=== PATIENT | female | born 1945 | race Caucasian/White ===

== ENCOUNTER 2019-12-18 15:22 | Emergency (ER) | payer MEDICARE ==
[2019-12-18] MEDS ORDERED: Ondansetron PF 4 MG/2 ML Vial ONE (15:56)
[2019-12-18] MEDS ORDERED: Metoclopramide HCl 10 MG/2 ML VIAL ONE (16:14)
[2019-12-18 16:15] LABS: #Basophils 0.1 thou/uL (0.0-0.2); #Eosinphils 0.2 thou/uL (0.0-0.7); #Monocytes 0.6 thou/uL (0.11-0.59); %Basophils 1.2 % (0.0-1.0); %Eosinophils 2.9 % (0.0-10.0); %Monocytes 7.4 % (0.0-10.0); %Neutrophils 63.4 % (42.0-75.0); ALT (SGPT) 26 U/L (8-55); AST (SGOT) 25 U/L (5-34); Albumin 4.1 g/dL (3.4-4.8); Alkaline Phosphatase 68 U/L (40-110); Anion Gap 15 mmol/L (10-20); BUN (Urea Nitrogen) 21 mg/dL (9.8-20.1); Bilirubin, Total 0.2 mg/dL (0.2-1.2); Calc. Creatinine Clearance 0 mL/min (70-130); Calcium 9.4 mg/dL (7.8-10.44); Carbon Dioxide 22 mmol/L (23-31); Chloride 107 mmol/L (98-107); Estimated GFR-MDRD 53; Globulin 2.9 g/dL (2.4-3.5); Glucose 130 mg/dL (83-110); Hemoglobin 13.2 g/dL (12.0-16.0); Lipase 63 U/L (8-78); Mean Corpuscular HGB CONC 31.5 g/dL (32.0-36.0); Mean Corpuscular Hemoglobin 32.7 pg (27.0-31.0); Mean Platelet Volume 8.5 fL (7.4-10.4); Platelet Count 210 thou/uL (130-400); RBC Distribution Width 12.6 % (11.5-14.5); Red Blood Cell (RBC) Count 4.03 mill/uL (4.20-5.40); Sodium 140 mmol/L (136-145); White Blood Cell (WBC) Count 7.9 thou/uL (4.8-10.8)
[2019-12-18] MEDS ORDERED: Iopamidol 370 76% 100 ML VIAL ONE (16:47)
[2019-12-18 17:12] LABS: Bilirubin Negative (Negative); Blood, Urine Moderate (Negative); Clarity Clear (Clear); Glucose, Urine (Dipstick) Negative (Negative); Leukocyte Negative (Negative); Nitrite Negative (Negative); Protein, Urine (Dipstick) Negative (Neg-Trace); Urobilinogen 0.2 mg/dL (Less than 2)
[2019-12-18 17:17] LABS: Bacteria/HPF 1+ HPF (None Seen); Squamous Epithelial 0-3 HPF (0-3); WBC/HPF 0-3 HPF (0-3)
--- NOTE | 2019-12-18 17:19 | CT ---
CT ABDOMEN AND PELVIS WITH CONTRAST: 12/18/[address] of the abdomen and pelvis was done for evaluation for right lower quadrant pain. The lung bases are clear except for some dependent atelectasis. The liver shows diffuse fatty infiltr ation but no space occupying disease. The spleen is normal in size. Both liver and spleen have some c alcified granulomas within them. The gallbladder is rather large, measuring 10.7 cm in length, but th ere is no wall thickening seen, gallstones, or inflammatory changes around it. The adrenal glands and aorta showed no acute findings. There is some very mild right hydronephrosis and hydroureter. While there are several phleboliths in the pelvis making it difficult to sort things out exactly, one of the pelvic calcifications appears t o be in the distal right ureters and is presumed to be a small calculus. It is 3 to 4 mm in caliber a nd is located just proximal to the right UVJ. This is presumed to be the cause of the patient's sympt oms. A 2 cm parapelvic cyst is seen in the left kidney. The bowel shows no dilation, inflammatory change, wall thickening, or other acute findings. The appe ndix appears normal. There is no free air or free fluid present. CT of the pelvis shows no pelvic masses, fluid collections, or inflammatory changes. There is probabl y some fat filled inguinal hernias bilaterally, more so on the left than right. Finally, there is a degenerated disc at L5-S1 with some mild concentric bulging. At L4-L5, there is c entral canal stenosis due to a combination of facet hypertrophy and a concentrically bulging disc. IMPRESSION: 1. 3 to 4 mm distal right ureteral calculus causing very minimal right hydronephrosis. 2. Diffuse fatty infiltration of the liver. 3. Large gallbladder but no signs of stones or wall thickening. 4. Appendix appears normal. 5. Lower lumbar findings as listed above. Preliminary report called to Dr. Wu at [id number] on 12/18/19. POS: HOME
--- NOTE | 2019-12-18 17:38 | RAD ---
CHEST TWO VIEWS: 12/18/19 The heart is upper normal in size but probably acceptable. There is no vascular congestion, edema, or pleural effusion. The lungs are clear except for perhaps some minor basilar atelectasis. IMPRESSION: No definite acute findings. POS: HOME
== END 2019-12-18 17:33 | disposition home or self-care (01) ==
LOC: BURERS 15:22
DX: N13.2 Hydronephrosis with renal and ureteral calculous obstruction (principal); E03.9 Hypothyroidism, unspecified; E78.5 Hyperlipidemia, unspecified; I10 Essential (primary) hypertension; Z79.899 Other long term (current) drug therapy
CPT/HCPCS: 36415; 51701; 71046; 74177; 80053; 81003; 81015; 83605; 83690; 85025; 87040; 94760; 96365; 96375; J2405; J2765; Q9967